=== PATIENT | male | born 1965 | race Caucasian/White ===

== ENCOUNTER → 2021-08-28 11:40 | Outpatient (BNVA) | payer BC, SELFPAY | PROVIDERS: Visit Provider Emergency Medicine | DX: M25.552 Pain in left hip (principal); Z87.39 Personal history of other diseases of the musculoskeletal system and connective tissue; M25.50 Pain in unspecified joint; M54.41 Lumbago with sciatica, right side | CPT/HCPCS: 80048; 84550 ==

== ENCOUNTER → 2021-09-23 10:30 | Outpatient (BNVA) | payer BC, SELFPAY | PROVIDERS: Visit Provider Emergency Medicine | DX: M10.9 Gout, unspecified (principal); M54.41 Lumbago with sciatica, right side | CPT/HCPCS: 80048; 84550 ==